=== PATIENT | male | born 1985 ===

== ENCOUNTER 2018-04-05 07:27 | Inpatient (IN) | payer OTHER ==
[~2018-04-05] VITALS: Ht 170.2 cm; Wt 97.5 kg
--- NOTE | 2018-04-05 10:00 | NUR ---
PRE ASSESSMENT PATIENT MET IN INTAKE OFFICE, HE IS A 32 YR OLD, CLEAN , WELL GROOMED MALE WHO PRESENT TO [facility] FOR A MEDICALLY SUPERVISED WITHDRAWAL FROM ALCOHOL ( HARD LIQUOR). PATIENT IS ALERT AND ORIENTED X 4 , BP 124/74, HR 95, T 98.6, O2 SATS 99% 0/10 PAIN. PATIENT STATES " I NEED TO GET SOBER AND GET MY FINANCES STRAIGHT, KEEP MY GIRL AND JOB ". THIS IS HIS FIRST TIME IN REHAB AND HAS NOT FORMALLY DETOXED BEFORE. HE HAS NO ALLERGIES, REGULAR DIET AND FULL CODE, WILL CONTINUE ASSESSMENT WHEN PATIENT IS ON THE FLOOR.
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
[2018-04-05] MEDS ORDERED: LOPERAMIDE HCL 2 MG CAPSULE PO PRN ×2 (10:45)
[2018-04-05] MEDS ORDERED: NICOTINE POLACRILEX 4 MG GUM-PK OF TEN BC PRN (10:45)
[2018-04-05] MEDS ORDERED: MAG HYDROX/AL HYDROX/SIMETH 30 ML LIQUID UDC PO PRN (10:45)
[2018-04-05] MEDS ORDERED: LORAZEPAM 1 MG TABLET PO PRN ×2 (10:45)
[2018-04-05] MEDS ORDERED: MIRALAX 17 GM POWD.PACK PO PRN (10:45)
[2018-04-05] MEDS ORDERED: ONDANSETRON 4 MG/2 ML VIAL IM PRN (10:45)
[2018-04-05] MEDS ORDERED: ONDANSETRON ODT 4 MG TAB.RAPDIS SL PRN (10:45)
[2018-04-05] MEDS ORDERED: ACETAMINOPHEN 325 MG TABLET PO PRN (10:45)
[2018-04-05] MEDS ORDERED: NICOTINE 14 MG/24HR PATCH TD PRN (10:45)
[2018-04-05] MEDS ORDERED: LORAZEPAM 2 MG/1 ML VIAL IM PRN (10:45)
[2018-04-05] MEDS ORDERED: THIAMINE HCL 200 MG/2 ML VIAL IM ONE (10:45)
[2018-04-05] MEDS ORDERED: DICYCLOMINE HCL 20 MG TABLET PO PRN (10:45)
[2018-04-05] MEDS ORDERED: MAGNESIUM HYDROXIDE 30 ML LIQUID UDC PO PRN (10:45)
[2018-04-05 11:13] LABS: *AMPHETAMINE, URINE NEGATIVE (NEGATIVE); *BARBITURATE, URINE NEGATIVE (NEGATIVE); *CANNABINOID, URINE POSITIVE (NEGATIVE); *COCCAINE, URINE NEGATIVE (NEGATIVE); *OPIATE, URINE NEGATIVE (NEGATIVE); *PHENCYCLIDINE SCREEN,URINE NEGATIVE (NEGATIVE)
[2018-04-05] MEDS ORDERED: HYDROXYZINE PAMOATE 25 MG CAPSULE PO PRN (11:30)
[2018-04-05 12:00] VITALS: BP 131/77
--- NOTE | 2018-04-05 12:00 | NUR ---
PRN ATIVAN ATIVAN 2MG PO GIVEN FOR CIWA 13, PT WITHDRAWAL SYMPTOMS INCLUDE EXTREME ANXIETY, THIRST, IRRITABILITY AND SENSE OF PANIC, WILL CONTINUE TO MONITOR AND REASSESS.
--- NOTE | 2018-04-05 13:00 | NUR ---
PRN REASSESS PATIENT IS LESS ANXIOUS , ATIVAN 2MG PO EFFECTIVE, PATIENT IS RESTING IN BED, CIWA 10
[2018-04-05 13:24] LABS: BASOPHILS % (AUTO) 0.5 % (0.0-2.0); EOSINOPHILS # (AUTO) 0.1 K/uL (0.0-0.7); EOSINOPHILS % (AUTO) 0.9 % (0.0-7.0); HEMATOCRIT 40.3 % (36.7-47.1); LYMPHOCYTES # (AUTO) 1.8 K/uL (20.0-40.0); LYMPHOCYTES % (AUTO) 29.2 % (20.5-51.5); MEAN CORPUSCULAR HEMOGLOBIN 31.2 uug (23.8-33.4); MEAN CORPUSCULAR HGB CONC 35 g/dL (32.5-36.3); MEAN CORPUSCULAR VOLUME 89.5 fL (73.0-96.2); MONOCYTES # (AUTO) 0.5 K/uL (2.0-10.0); MONOCYTES % (AUTO) 7.7 % (0.0-11.0); NEUTROPHILS # (AUTO) 3.8 K/uL (1.8-8.9); NEUTROPHILS % (AUTO) 61.7 % (38.5-71.5); PLATELET COUNT (AUTO) 221 K/uL (152-348); WHITE BLOOD COUNT (AUTO) 6.2 K/uL (3.6-10.2)
[2018-04-05 13:35] LABS: ETHANOL < 3 MG/DL (0-0)
[2018-04-05 13:53] LABS: ALANINE AMINOTRANSFERASE 40 U/L (16-63); ALKALINE PHOSPHATASE 65 U/L (50-136); AMYLASE 33 U/L (25-115); ASPARTATE AMINOTRANSFERASE 29 U/L (15-37); BILIRUBIN,TOTAL 0.3 mg/dL (0.2-1.0); CARBON DIOXIDE 30 mmol/L (21-32); CHLORIDE 102 mmol/L (98-107); GLUCOSE 110 mg/dL (74-106); POTASSIUM 4.2 mmol/L (3.5-5.1); TOTAL PROTEIN, SERUM 7.1 g/dL (6.4-8.2); UREA NITROGEN, BLOOD 15 mg/dL (7-18)
--- NOTE | 2018-04-05 14:27 | NUR ---
Client was prompted to attend group counseling sessions at 11:00am and at 3:30pm.
[2018-04-05] MEDS: LORAZEPAM 1 MG TABLET PO SCH ×2 (15:00→20:09)
[2018-04-05 16:00] VITALS: BP 139/91
--- NOTE | 2018-04-05 18:53 | NUR ---
END OF SHIFT : PATIENT IS A 32 YR OLD MALE ADMITTED TO THE MEDICAL CENTER ON 04/05/18 FOR A MEDICALLY SUPERVISED WITHDRAWAL FROM ALCOHOL. MD PLACED HIM ON A 5 DAY ATIVAN TAPER AND THIS IS DAY 1. PATIENT HAS ATTENDED ALL GROUPS TODAY AND IS INTERACTING WITH HIS PEERS. HIS WITHDRAWAL SYMPTOMS INCLUDE: IRRITABILITY, SENSE OF PANIC, SWEATS, GROSS TREMORS AND ANXIETY. THIS IS THE PATIENTS FIRST TIME IN TREATMENT BUT HE HAS HAD A PERIOD OF SOBRIETY IN [id number] FOR 2.5 YRS. PRN MEDICATIONS GIVEN THIS SHIFT : ATIVAN 2MG PO. LAST CIWA 10 @ 1600. PATIENT HAD A FLUID INTAKE OF 1500 ML, 3 VOIDS AND 1 BM. CONTINUE TO FOLLOW MD PLAN OF CARE. ENDORSED TO NIGHT NURSE.
--- NOTE | 2018-04-05 19:30 | NUR ---
Start of Shift Pt is a 32 y/o male admitted 04/05/18 day shift for medically managed withdrawal/detox from ETOH. Pt found in Rec room where per endorsement has been attending all groups. In room pt cooperative and answers questions/responds to commands appropriately, A&O x 3. No c/o pain or discomfort. Evening meds reviewed with patient with no requests. Will continue to monitor for duration of shift, promptly attending to all patient needs.
[2018-04-05 20:00] VITALS: BP 128/87
[2018-04-05] MEDS: diphenhydrAMINE 50 MG CAPSULE PO PRN (23:43)
--- NOTE | 2018-04-05 23:43 | NUR ---
PRN Med Benedryl 50mg PO given per pt request for insomnia. Will continue to monitor, reassessing in 1 hour, promptly attending to all patient needs.
--- NOTE | 2018-04-06 | NUR ---
Midnight VS's CIWA Deferred 0000 VS's and CIWA deferred r/t pt sleeping/refused. RR 14, even and nonlabored. Will continue to monitor pt and promptly attend to all pt needs
--- NOTE | 2018-04-06 00:43 | NUR ---
Benedryl 50mg PO given 1 hour prior. At present patient sleeping, RR 14, even and nonlabored. Will continue to monitor patient, promptly attending to all pt needs.
--- NOTE | 2018-04-06 04:00 | NUR ---
0400 VS's CIWA Deferred 0400 VS's and CIWA deferred r/t pt sleeping/refused. RR 14, even and nonlabored. Will continue to monitor pt and promptly attend to all pt needs
[2018-04-06 06:09] LABS: HEPATITIS B SURFACE AG Negative (Negative)
--- NOTE | 2018-04-06 07:14 | NUR ---
End of Shift Pt is a 32 y/o male admitted 04/05/18 day shift for medically managed withdrawal/detox from ETOH. PRNs for shift include Benedryl 50mg PO for insomnia . Pt slept for 6 hours, with 1542 intake, 2 voids, 1 BMs. Will continue to monitor for duration of shift, promptly attending to all patient needs.
--- NOTE | 2018-04-06 07:25 | NUR ---
START OF SHIFT PT IS A 32 Y/O M ADMITTED ON 04/05/18 FOR MEDICALLY SUPERVISED ETOH WITHDRAWAL. PT IS PLACED ON 5 DAY ATIVAN TAPER, TODAY BEING THE SECOND DAY AND TOLERATING WELL. RECEIVED PT A/OX4, RESPIRATIONS EVEN AND UNLABORED, PT PRESENTS FACIAL FLUSHING, DIAPHORESIS, ANXIETY, AGITATION, RESTLESSNESS, FATIGUE, FINE/GROSS TREMORS, GENERALIZED BODY ACHES, MUSCLE CRAMPS. LAST CIWA 8 @1999. PT HAS BEEN GIVEN BENADRYL FOR SLEEP LAST NIGHT. ENCOURAGED PT TO INCREASE FLUIDS TO FACILITATE IN DETOX AND FOR HYDRATION. SIDE RAILS UPX2, BED IN LOW POSITION, CALL LIGHT WITHIN REACH. SAFETY MEASURES IN PLACE. WILL CLOSELY MONITOR AND PROVIDE SUPPORT.
[2018-04-06 08:00] VITALS: BP 131/79
[2018-04-06] MEDS ORDERED: TUBERCULIN,PURIF.PROT.DERIV. 5 TU/0.1 ML TEST ID ONE (09:00)
[2018-04-06] MEDS: THIAMINE HCL 100 MG TABLET PO SCH (09:41)
[2018-04-06] MEDS: MULTIVITAMINS,THERAPEUTIC TABLET PO SCH (09:41)
[2018-04-06] MEDS: FOLIC ACID 1 MG TABLET PO SCH (09:41)
[2018-04-06] MEDS: LORAZEPAM 1 MG TABLET PO SCH ×2 (09:42→12:37)
[2018-04-06] MEDS: IBUPROFEN 400 MG TABLET PO PRN (09:53)
--- NOTE | 2018-04-06 09:53 | NUR ---
PRN IBUPROFEN 400 MG PO PRN GIVEN FOR GENERALIZED BODY ACHES. PT C/O 'HURTING ALL OVER," MUSCLE SPASMS, GENERALIZED PAIN. WILL MONITOR AND REASSESS.
--- NOTE | 2018-04-06 10:53 | NUR ---
REASSESSMENT PT REPORTS MED WAS EFFECTIVE BUT STILL HAVING MUSCLE ACHES AND SPASMS. SAFETY MEASURES IN PLACE. WILL CONTINUE TO MONITOR.
[2018-04-06 12:18] VITALS: BP 142/95
[2018-04-06] MEDS: CLONIDINE HCL 0.1 MG TABLET PO PRN (12:38)
--- NOTE | 2018-04-06 12:38 | NUR ---
PRN CLONIDINE 0.1 MG PO PRN GIVEN FOR BP : 142/95. WILL MONITOR REASSESS.
--- NOTE | 2018-04-06 13:38 | NUR ---
REASSESSMENT BP: 135/82. SAFETY MEASURES IN PLACE. WILL CONTINUE TO MONITOR.
[2018-04-06 16:00] VITALS: BP 103/53
[2018-04-06] MEDS: METHOCARBAMOL 500 MG TABLET PO PRN (16:43)
--- NOTE | 2018-04-06 16:43 | NUR ---
PRN ROBAXIN 500 MG PO PRN GIVEN FOR MUSCLE SPASMS, MUSCLE ACHES. WILL MONITOR AND REASSESS.
[2018-04-06] MEDS ORDERED: LORAZEPAM 1 MG TABLET PO SCH ×2 (17:00→21:00)
--- NOTE | 2018-04-06 17:43 | NUR ---
REASSESSMENT PT REPORTED MEDICATION WAS EFFECTIVE. WILL CONTINUE TO MONITOR.
--- NOTE | 2018-04-06 18:46 | NUR ---
END OF SHIFT PT'S LAST CIWA 12. PT HAS BEEN GIVEN IBUPROFEN, CLONIDINE, AND ROBAXIN PO PRNS DURING SHIFT. PT HAS BEEN COMPLIANT WITH TX PLAN AND MED REGIMEN. PT HAS ATTENDED AND PARTICIPATED ALL GROUPS. PT VERBALIZED GROUPS HAVE BEEN EFFECTIVE FOR COPING SKILLS. PT ATE 100% OF MEALS. FLUID INTAKE: 2475ML, VOIDED X2, BM X1. SAFETY MEASURES IN PLACE. WILL GIVE ENDORSEMENT TO CONTACT ASSEMBLER.
--- NOTE | 2018-04-06 19:30 | NUR ---
Start of Shift Pt is a 32 y/o male admitted 04/05/18 for medically managed withdrawal/detox from ETOH. Pt presents with NKA, Full Code and on regular diet, with hx of ADDH, spider bite on left forearm, reportedly improved per endorsement. 1rst time in treatment for ETOH, with 5 day Ativan taper ordered. Emdorsement reports CIWA as 12. Pt appears happy/hopeful, friendly and cooperative. Able to answer questions and respond appropriately to commands, A&O x 4. Evening meds discussed with pt requesting Benedryl 50mg PO for insomnia. No c/os at present.Will continue to monitor for shift, promptly attending to all pt needs.
[2018-04-06 20:00] VITALS: BP 137/88
[2018-04-06] MEDS: diphenhydrAMINE 50 MG CAPSULE PO PRN (21:07)
--- NOTE | 2018-04-06 21:07 | NUR ---
PRN Med Benedryl 50mg PO given for insomnia. Will continue to monitor, reassessing in 1 hour, and promptly attending to all pt needs
--- NOTE | 2018-04-06 22:07 | NUR ---
PRN Reassessment Benedryl 50mg PO given for insomnia 1 hour prior. At present pt sleeping, RR 14, even and non labored. Med effective. Will continue to monitor for duration of shift, promptly attending to all pt needs.
--- NOTE | 2018-04-07 | NUR ---
VS's CIWA Deferred Midnight VS's CIWA deferred r/t pt sleeping/refused. RR 14, even and nonlabored. Will continue to monitor and promptly attend to all pt needs
--- NOTE | 2018-04-07 04:00 | NUR ---
VS's CIWA Deferred 0400 VS's CIWA deferred r/t pt sleeping/refused. RR 14, even and nonlabored. Will continue to monitor and promptly attend to all pt needs
--- NOTE | 2018-04-07 06:32 | NUR ---
End of Shift Pt is a 32 y/o male admitted 04/05/18 for medically managed withdrawal/detox from ETOH. Pt presents with NKA, Full Code and on regular diet, with hx of ADDH, spider bite on left forearm, improved. 1rst time in treatment for ETOH, with 5 day Ativan taper ordered. Last CIWA score 10 at 2000 hours, midnight and 0400 deferred. PRN meds for shift included Benedryl 50mg PO . Pt appears rested, drowsy. Speech normal, eye contact direct. Pt slept for 6 hours, with 1036 intake, 2 voids and 0 BM. Will continue to monitor for shift until giving endorsement, promptly attending to all pt needs.
--- NOTE | 2018-04-07 07:30 | NUR ---
START OF SHIFT PT IS A 32 Y/O M ADMITTED ON 04/05/18 FOR MEDICALLY SUPERVISED ETOH WITHDRAWAL. PT IS PLACED ON 5 DAY ATIVAN TAPER, TODAY BEING THE THIRD DAY AND TOLERATING WELL. RECEIVED PT A/OX4, RESPIRATIONS EVEN AND UNLABORED, PT PRESENTS FACIAL FLUSHING, DIAPHORESIS, ANXIETY, AGITATION, LIGHT SENSITIVITY, RESTLESSNESS, HEADACHE, GENERALIZED BODY ACHES, MUSCLE CRAMPS, TREMORS NOTED. LAST CIWA 8 @1999. PT HAS BEEN GIVEN BENADRYL FOR SLEEP LAST NIGHT. ENCOURAGED PT TO INCREASE FLUIDS TO FACILITATE IN DETOX AND FOR HYDRATION. EDUCATED PT WITH TODAY'S PLAN OF CARE AND MED REGIMEN. SIDE RAILS UPX2, BED IN LOW POSITION, CALL LIGHT WITHIN REACH. SAFETY MEASURES IN PLACE. WILL CLOSELY MONITOR AND PROVIDE SUPPORT.
[2018-04-07 08:00] VITALS: BP 118/73
[2018-04-07] MEDS: THIAMINE HCL 100 MG TABLET PO SCH (08:35)
[2018-04-07] MEDS: FOLIC ACID 1 MG TABLET PO SCH (08:35)
[2018-04-07] MEDS: MULTIVITAMINS,THERAPEUTIC TABLET PO SCH (08:35)
[2018-04-07] MEDS: METHOCARBAMOL 500 MG TABLET PO PRN ×2 (08:37→17:38)
--- NOTE | 2018-04-07 08:37 | NUR ---
PRN IBUPROFEN AND ROBAXIN PO PRN GIVEN FOR C/O MUSCLE ACHES AND MUSCLE SPASMS, PRESENTING FACIAL GRIMACING, AND RESTLESSNESS. WILL MONITOR AND REASSESS.
[2018-04-07] MEDS: IBUPROFEN 400 MG TABLET PO PRN ×2 (08:39→17:39)
[2018-04-07] MEDS ORDERED: LORAZEPAM 1 MG TABLET PO SCH ×3 (09:00→21:00)
--- NOTE | 2018-04-07 09:37 | NUR ---
REASSESSMENT PT REPORTED MEDICATION WAS EFFECTIVE. SAFETY MEASURES IN PLACE. WILL CONTINUE TO MONITOR.
--- NOTE | 2018-04-07 09:52 | NUR ---
Client was prompted to attend twice daily group counseling sessions. Client stated she is leaving today and wants to focus on her discharge.
[2018-04-07 12:00] VITALS: BP 90/69
[2018-04-07 16:30] VITALS: BP 142/91
[2018-04-07] MEDS: CLONIDINE HCL 0.1 MG TABLET PO PRN (16:39)
--- NOTE | 2018-04-07 16:39 | NUR ---
PRN CLONIDINE 0.1 MG PO PRN GIVEN FOR BP: 142/92. PT REPORTS FEELING ANXIOUS DUE TO SPEAKING IN GROUP. WILL MONITOR AND REASSESS.
[2018-04-07 17:39] VITALS: BP 136/81
--- NOTE | 2018-04-07 17:39 | NUR ---
REASSESSMENT BP: 136/82 HR: 91. PT REPORTS FEELING LESS ANXIOUS AND MORE CALM. SAFETY MEASURES IN PLACE. WILL CONTINUE TO MONITOR.
--- NOTE | 2018-04-07 17:39 | NUR ---
PRN ROBAXIN AND IBUPROFEN PO PRNS GIVEN FOR C/O MUSCLE ACHES, MUSCLE SPASMS 6/10 PAIN. WILL MONITOR AND REASSESS.
--- NOTE | 2018-04-07 18:39 | NUR ---
REASSESSMENT PT REPORTS MED IS EFFECTIVE AND PAIN IS NOW 3/10. SAFETY MEASURES IN PLACE. WILL CONTINUE TO MONITOR.
--- NOTE | 2018-04-07 18:49 | NUR ---
END OF SHIFT LAST CIWA 14 @1600. PT HAS BEEN GIVEN IBUPROFENX2, ROBAXINX2, CLONIDINE PRNS DURING SHIFT. PT HAS ATTENDED ALL GROUPS AND IS ACTIVELY PARTICIPATING IN GROUPS AND ACTIVITIES. PT HAS BEEN COMPLIANT WITH TX PLAN AND MED REGIMEN. PT REPORTS HAVING INCREASED ANXIETY TODAY. PT ATE 75/100/100% OF MEALS. FLUID INTAKE 2500 ML, VOIDED X4, BM X1. SAFETY MEASURES IN PLACE. WILL GIVE ENDORSEMENT TO EDUCATION ADVISER NURSE.
--- NOTE | 2018-04-07 19:12 | NUR ---
Start of shift note Received report from ay shift nurse. Pt is a 32 yo male, A+Ox4, presenting to [facility] for ETOH withdrawal. Pt noted to be anxious, restless, and agitated. Pt has HX of ADHD which will be monitored during shift. Pt is on 5 day Ativan taper, tolerated well. Respirations even and unlabored. Will continue to monitor.
[2018-04-07 20:09] VITALS: BP 154/82
[2018-04-08 00:50] VITALS: BP 97/55
[2018-04-08 04:02] VITALS: BP 104/68
--- NOTE | 2018-04-08 06:55 | NUR ---
End of shift note Pt was continuously noted with anxiety, agitation, flushed face, sweats, chills, tremors, and restlessness. Pt remained in room for majority of shift except to go smoke on smoking patio, to get food from kitchen, and to interact with other patients in recreational room. Pt is on 5 day Ativan taper, tolerated well. Pt was not given and PRN medications during shift. Pt slept for a total of 7 HRS. Last CIWA: 9 @0400. Respirations even and unlabored. Will endorse to day shift nurse.
--- NOTE | 2018-04-08 07:30 | NUR ---
START OF SHIFT Pt 32 y/o male admitted for [facility] detoxification. Pt received in room on bed with eyes closed resting, but easily arousable to name. Inocenterla. Skin warm and moist to touch. Respirations even and unlabored. Bilateral hand tremors noted. Pt appears disheveled. Clothes and empty water bottles scattered throughout the room. Encouraged to maintain hygiene. It was reported that pt slept for 7 hours last night. Pt is on a 5 day ativan taper and is on day 2. Last reported ciwa=9@0400. Bed on lowest position with side rails x2 up for safety. Call light within reach. Addendum: 04/09/18 at 1806 by STEVEN FOSTER RN correction Pt is on a 4 day ativan taper and is on day 3.
[2018-04-08 08:00] VITALS: BP 118/77
[2018-04-08] MEDS: MULTIVITAMINS,THERAPEUTIC TABLET PO SCH (08:49)
[2018-04-08] MEDS: THIAMINE HCL 100 MG TABLET PO SCH (08:49)
[2018-04-08] MEDS: METHOCARBAMOL 500 MG TABLET PO PRN ×2 (08:49→21:51)
[2018-04-08] MEDS: FOLIC ACID 1 MG TABLET PO SCH (08:49)
[2018-04-08] MEDS: LORAZEPAM 1 MG TABLET PO SCH ×3 (08:49→21:49)
[2018-04-08] MEDS ORDERED: LORAZEPAM 1 MG TABLET PO SCH (09:00)
[2018-04-08 12:00] VITALS: BP 134/90
--- NOTE | 2018-04-08 12:20 | NUR ---
Therapist prompted client to attend twice daily group therapy sessions. Client agreed to attend.
[2018-04-08] MEDS ORDERED: IBUP-1953 PO (12:58)
[2018-04-08] MEDS ORDERED: CLON0.1T14 PO (12:58)
[2018-04-08] MEDS ORDERED: HYDR-3895 PO (12:58)
[2018-04-08] MEDS ORDERED: METH500T6 PO (12:58)
[2018-04-08] MEDS ORDERED: DIPH50CA37 PO (12:58)
[2018-04-08 16:00] VITALS: BP 130/87
--- NOTE | 2018-04-08 18:32 | NUR ---
END OF SHIFT Pt 32 y/o male admitted for [facility] detoxification. Pt alert and oriented to name, place, and time. Perrla. Skin warm and moist to touch. Respirations even and unlabored. Bilateral hand tremors noted. Pt appears disheveled. Food wrappings and empty water bottles scattered throughout the room. Encouraged to maintain hygiene. Pt observed mostly isolative to room throughout the day. Pt attended group activity. Pt was seen by MD today. Pt medication compliant and tolerated well. No ASE noted. Pt is on a 5 day ativan taper and is on day 2. Ciwas=9@0800, 9@1200, and 9 @1600. Bed on lowest position with side rails x2 up for safety. Call light within reach. Addendum: 04/09/18 at 1806 by STEVEN FOSTER RN correction Pt is on a 4 day ativan taper and is on day 3.
--- NOTE | 2018-04-08 19:10 | NUR ---
Start of shift note Received report from day shift nurse. Pt is a 32 yo male, A+Ox4, presenting to [facility] for ETOH withdrawal. Pt noted with anxiety, agitation, restlessness, sweats, chills, and fine tremors. Pt is on 5 day Ativan taper, tolerated well. Respirations even and unlabored. Will continue to monitor.
[2018-04-08 20:10] VITALS: BP 142/93
--- NOTE | 2018-04-08 21:51 | NUR ---
PRN Robaxin Pt c/o muscle pain/spasms 06/08 and requested for PRN Robaxin. Medication given and tolerated well. Will reassess within 1 HR. Will continue to monitor.
--- NOTE | 2018-04-08 22:45 | NUR ---
PRN Robaxin Reassessment Medication effective. Pt expresses reduction in muscle pain/spasms to 3/10. No s/s of ASE noted at this time. Respirations even and unlabored. Will continue to monitor.
[2018-04-09 00:39] VITALS: BP 140/89
[2018-04-09] MEDS: diphenhydrAMINE 50 MG CAPSULE PO PRN (00:49)
--- NOTE | 2018-04-09 00:49 | NUR ---
PRN Benadryl Pt c/o inability to sleep and requested for PRN Benadryl. Medication given and tolerated well. Will reassess within1 HR. Will continue to monitor.
--- NOTE | 2018-04-09 01:40 | NUR ---
PRN Benadryl Reassessment Medication effective. Pt is resting well in bed. No s/s of ASE noted at this time. Respirations even and unlabored. Will continue to monitor.
[2018-04-09 04:13] VITALS: BP 136/84
--- NOTE | 2018-04-09 07:00 | NUR ---
End of shift note Pt was continuously noted with agitation, anxiety, restlessness, sweats, chills, and fine tremors. Pt remained in room for majority of shift except to get food from kitchen, to go smoke on smoking patio, and to interact with other patients in recreational room. Pt is on 5 day Ativan taper, tolerated well. Pt was given PRN Robaxin @2151 and PRN Benadryl @0049. Pt slept for a total of 6 HRS. Last CIWA: 8 @0400. Respirations even and unlabored. Will endorse to day shift nurse.
--- NOTE | 2018-04-09 07:19 | NUR ---
START OF SHIFT Pt 32 y/o male admitted for [facility] detoxification. Pt received in room on bed with eyes closed resting, but easily arousable to name. Perrla. Pt alert and oriented to name, place, and time. Skin warm and moist to touch. Respirations even and unlabored. Bilateral hand tremors noted. Pt appears disheveled. Food wrappings scattered throughout the room. Encouraged to maintain hygiene. It was reported that pt slept for 6 hours last night. Pt is on a 5 day ativan taper and is on day 3. Last reported ciwa=8 @2100. Bed on lowest position with side rails x2 up for safety. Call light within reach. Addendum: 04/09/18 at 1806 by STEVEN FOSTER RN correction Pt is on a 4 day ativan taper and is on day 4.
[2018-04-09 08:00] VITALS: BP 137/79
[2018-04-09] MEDS: THIAMINE HCL 100 MG TABLET PO SCH (08:58)
[2018-04-09] MEDS: MULTIVITAMINS,THERAPEUTIC TABLET PO SCH (08:58)
[2018-04-09] MEDS: FOLIC ACID 1 MG TABLET PO SCH (08:58)
[2018-04-09] MEDS: METHOCARBAMOL 500 MG TABLET PO PRN ×2 (08:58→20:31)
[2018-04-09] MEDS ORDERED: LORAZEPAM 1 MG TABLET PO SCH (09:00)
--- NOTE | 2018-04-09 09:08 | NUR ---
PRN Pt states has body aches 6/10. Robaxin po prn per MD order given and tolerated well.
--- NOTE | 2018-04-09 10:08 | NUR ---
PRN EVAL Pt states body aches 01/09.
[2018-04-09 12:30] VITALS: BP 153/98
[2018-04-09] MEDS: CLONIDINE HCL 0.1 MG TABLET PO PRN (13:37)
--- NOTE | 2018-04-09 13:38 | NUR ---
PRN Pt with gy=224/93. Catapres po prn per MD order given and tolerated well.
--- NOTE | 2018-04-09 14:48 | NUR ---
PRN EVAL pt with lm=182/80
[2018-04-09 16:00] VITALS: BP 118/79
--- NOTE | 2018-04-09 18:34 | NUR ---
END OF SHIFT Pt 32 y/o male admitted for [facility] detoxification. Pt alert and oriented to name, place, and time. Perrla. Skin warm and moist to touch. Respirations even and unlabored. Bilateral hand tremors noted. Pt appears disheveled. Empty water bottles scattered throughout the room. Encouraged to maintain hygiene. Pt is scheduled to be discharged tomorrow. Pt observed mostly isolative to room throughout the day. Pt attended group activity. Pt was seen by MD today. Pt medication compliant and tolerated well. No ASE noted. Pt is on a 4 day ativan taper and is on day 4 . Ciwas=8@0800, 6@1200, and 6 @1600. Pt received Robaxin po prn per MD order for generalized body aches this morning and was effective. Pt also received Catapres po prn per MD order for elevated BP, and was effective. Bed on lowest position with side rails x2 up for safety. Call light within reach.
--- NOTE | 2018-04-09 19:12 | NUR ---
Start of shift note Received report from day shift nurse. Pt is a 32 yo male, A+Ox4, presenting to [facility] for ETOH withdrawal. Pt noted to be anxious, agitated, and restless. Pt has completed 4 day Ativan taper, tolerated well, and is due for discharge tomorrow. Respirations even and unlabored. Will continue to monitor.
[2018-04-09 20:07] VITALS: BP 139/86
--- NOTE | 2018-04-09 20:31 | NUR ---
PRN Robaxin Pt c/o general body pain/ muscle spasms 05/09 and requested for PRN Robaxin. Medication given and tolerated well. Will reassess within 1 HR. Will continue to monitor.
--- NOTE | 2018-04-09 21:30 | NUR ---
PRN Robaxin Reassessment Medication effective. Pt expresses reduction in muscle pain/spasms to 2/10. No s/s of ASE noted at this time. Respirations even and unlabored. Will continue to monitor.
[2018-04-10] MEDS: diphenhydrAMINE 50 MG CAPSULE PO PRN (00:26)
--- NOTE | 2018-04-10 00:26 | NUR ---
PRN Benadryl Pt c/o inability to sleep and requested for PRN Benadryl. Medication given and tolerated well. Will reassess within 1 HR. Will continue to monitor.
[2018-04-10 00:42] VITALS: BP 134/83
[2018-04-10 04:28] VITALS: BP 130/84
--- NOTE | 2018-04-10 06:56 | NUR ---
End of shift note Pt was continuously noted with agitation, anxiety, and restlessness. Pt remained in room for majority of shift except to get food from kitchen, to go smoke on smoking patio, and to interact with other patients in recreational room. Pt has completed 4 day Ativan taper, tolerated well, and is due for discharge today. Pt was given PRN Robaxin @2031 and PRN Benadryl @0026. Pt slept for a total of 6 HRS. Last CIWA: 5 @0400. Respirations even and unlabored. Will endorse to ay shift nurse.
--- NOTE | 2018-04-10 07:20 | NUR ---
Start of Shift Note Pt is a 32 y/o male admitted for the medically managed withdrawal of ETOH. Pt. completed a 4 day Ativan taper on 04/09/18. Pt. is A/O X 4. Received pt. in room, restless but pleasant upon approach. Pt. stated Im anxious about leaving. Pt. is to be redirected. Pt. appears disheveled but is clan, with a well kept room. Pt. is due to be discharged today to [facility]. Pt. educated on discharge plan. Pt was given PRN Pablo @2030 and PRN Norma @25. Pt slept for a total of 6 HRS. Last CIWA: 5 @0400. Respirations even and unlabored. Will continue to monitor pt.s behavior for safety while he remains on the unit.
[2018-04-10 08:06] VITALS: BP 121/71
[2018-04-10] MEDS: MULTIVITAMINS,THERAPEUTIC TABLET PO SCH (08:28)
[2018-04-10] MEDS: THIAMINE HCL 100 MG TABLET PO SCH (08:28)
[2018-04-10] MEDS: FOLIC ACID 1 MG TABLET PO SCH (08:29)
[2018-04-10] MEDS: METHOCARBAMOL 500 MG TABLET PO PRN (08:29)
--- NOTE | 2018-04-10 08:30 | NUR ---
PRN Medication Pt. complain of body aches, and requested PRN Robaxin. Robaxin given at this time will re-assess for medication effectiveness.
--- NOTE | 2018-04-10 09:10 | NUR ---
Medication Re-Assessment Pt. reports feeling better, and experiencing less body aches and pain. Medication effective.
--- NOTE | 2018-04-10 09:28 | NUR ---
Discharge Note Pt. Discharged per MD order. All belongings, Rx and signed teaching materials place in blue and black bag. Medication cassette and belongings cabinet checked for pt. belongings. Pt. A/O X 4 and in stable condition, with no signs of distress noted. Vital signs WNL. Last CIWA 4 at 0800. Pt. denies SI, HI, AH, and VH. Pt. escorted of the unit by staff. Transportation provided by [employer].
== END 2018-04-10 09:25 | disposition home or self-care (01) | DRG 895 ==
LOC: SRC 09:39
PROVIDERS: ADMIT Internal Medicine; ATTEND Internal Medicine
PROC: HZ41ZZZ Group Counseling for Substance Abuse Treatment, Behavioral (ICD-10-PCS; principal; 2018-04-05)
PROC: HZ2ZZZZ Detoxification Services for Substance Abuse Treatment (ICD-10-PCS; principal; 2018-04-05)
PROC: HZ31ZZZ Individual Counseling for Substance Abuse Treatment, Behavioral (ICD-10-PCS; 2018-04-07)
DX: F10.230 Alcohol dependence with withdrawal, uncomplicated (principal); I15.9 Secondary hypertension, unspecified; F17.210 Nicotine dependence, cigarettes, uncomplicated; F90.9 Attention-deficit hyperactivity disorder, unspecified type; Y90.0 Blood alcohol level of less than 20 mg/100 ml; Z81.1 Family history of alcohol abuse and dependence; F41.9 Anxiety disorder, unspecified; R73.9 Hyperglycemia, unspecified
CPT/HCPCS: 36415; 70030-TC; 80307; 80349; 83735; 85025; 86580; 86592; 86705; 86803; 87340; 87806; G0480; J3411; Q0163